=== PATIENT | female | born 1950 | race Caucasian/White ===

== ENCOUNTER 2017-08-11 19:53 | Inpatient (IN) | payer MEDICARE ==
[2017-08-11 20:37] LABS: #Eosinphils 0.1 thou/uL (0.0-0.7); #Lymphocytes 0.7 thou/uL (1.20-3.40); #Monocytes 0.6 thou/uL (0.11-0.59); #Neutrophils 7.7 thou/uL (1.40-6.50); %Basophils 0.1 % (0.0-1.0); %Eosinophils 0.6 % (0.0-10.0); %Lymphocytes 7.8 % (21.0-51.0); %Monocytes 6.2 % (0.0-10.0); Hematocrit 40.1 % (36.0-47.0); Mean Platelet Volume 7.4 fL (7.4-10.4); Red Blood Cell (RBC) Count 3.99 mill/uL (4.20-5.40)
[2017-08-11] MEDS ORDERED: Octreotide Acetate 1,250 MCG in Sodium Chloride 0.9% 250 ML 250 ML IVPB ONE (20:45)
[2017-08-11] MEDS ORDERED: Octreotide Acetate 100 MCG/ML VIAL SLOW IVP SCH (20:45)
[2017-08-11 20:49] LABS: PTT 35.6 SEC (22.9-36.1); Prothrombin Time 13.9 SEC (12.0-14.7)
[2017-08-11] MEDS ORDERED: Octreotide Acetate 50 MCG/ML AMP ONE (20:58)
[2017-08-11 21:01] LABS: ALT (SGPT) 69 U/L (8-55); AST (SGOT) 68 U/L (5-34); Alkaline Phosphatase 84 U/L (40-150); Anion Gap 14 mmol/L (10-20); BUN (Urea Nitrogen) 12 mg/dL (9.8-20.1); Bilirubin, Total 0.8 mg/dL (0.2-1.2); CK (CPK) 147 U/L (29-168); Calc. Creatinine Clearance 0 mL/min (70-130); Calcium 8.7 mg/dL (7.8-10.44); Carbon Dioxide 25 mmol/L (23-31); Chloride 108 mmol/L (98-107); Estimated GFR-MDRD 74; Globulin 2.5 g/dL (2.4-3.5); Protein, Total 6.5 g/dL (6.0-8.3)
[2017-08-11 21:07] LABS: Troponin I Less than 0.010 ng/mL (< 0.028)
--- NOTE | 2017-08-11 22:52 | PDOC.EVN ---
Event Note - Event Note Event Note: [id number] h&p dictated 1. GI bleed 2. abdominal pain 3. dm type 2 4. htn plan: see orders
[2017-08-11] MEDS ORDERED: Ondansetron HCl/PF 4 MG/2 ML Vial IVP PRN (23:43)
[2017-08-11] MEDS ORDERED: Famotidine/PF 20 mg/2ml Vial SLOW IVP SCH (23:45)
[2017-08-11 23:53] LABS: Troponin I Less than 0.010 ng/mL (< 0.028)
[2017-08-12 00:20] LABS: Hematocrit 41.6 % (36.0-47.0)
[2017-08-12] MEDS: Sodium Chloride 0.9% 1,000 ML IV SCH ×3 (01:02→18:28)
[2017-08-12] MEDS: cefTRIAXone\\ROCEPHIN 1 GM in Sterile Water 10 ML IVPB SCH (01:03)
[2017-08-12 02:49] LABS: PTT 37.8 SEC (22.9-36.1)
[2017-08-12 02:56] LABS: Troponin I Less than 0.010 ng/mL (< 0.028)
[2017-08-12 03:00] LABS: ALT (SGPT) 134 U/L (8-55); AST (SGOT) 178 U/L (5-34); Alkaline Phosphatase 122 U/L (40-150); Anion Gap 14 mmol/L (10-20); BUN (Urea Nitrogen) 10 mg/dL (9.8-20.1); Bilirubin, Direct 0.5 mg/dL (0.1-0.3); Calc. Creatinine Clearance 99 mL/min (70-130); Calcium 8.8 mg/dL (7.8-10.44); Carbon Dioxide 23 mmol/L (23-31); Chloride 106 mmol/L (98-107); Estimated GFR-MDRD 76; Globulin 2.6 g/dL (2.4-3.5); Protein, Total 6.6 g/dL (6.0-8.3)
[2017-08-12 06:01] VITALS: BMI 27.5
[2017-08-12 06:07] LABS: Hematocrit 42.7 % (36.0-47.0)
--- NOTE | 2017-08-12 07:12 | HP ---
DATE OF ADMISSION: 08/11/2017 CHIEF COMPLAINT: Nausea, vomiting. HISTORY OF PRESENT ILLNESS: The patient is a 67-year-old female with past medical history of hypertension, diabetes mellitus type 2, GERD, history of GI bleed, came to the ER, complaining of nausea and vomiting. The patient said she has numerous episodes of vomiting started this morning, complains of loose stools also, 4-5 black in color. Patient's initially vomiting are clear, later on started noticing blood in the vomit. Denies any fever, denies any chills, denies any chest pain, denies any trouble breathing. Complain some abdominal pain, epigastric mild. denies any cough, denies sputum production. Symptoms persisted that is why she came to the ER. Patient initially went to outside ER , the patient was transferred here for further evaluation. PAST MEDICAL HISTORY: As per HPI. PAST SURGICAL HISTORY: Hernia repair, hysterectomy. SOCIAL HISTORY: Denies smoking, denies alcohol, denies any drugs. FAMILY HISTORY: Denies any heart problems. MEDICATIONS: Reviewed. ALLERGIES: No known drug allergies. REVIEW OF SYSTEMS: Constitutional: Denies any fever, denies any chills. Eyes : No vision problems. Ears: Denies any hearing loss. Neck: Denies neck pain. Cardiovascular: Denies any chest pain. Respiratory: Denies any cough, denies production. Gastrointestinal: Positive for abdominal pain. Positive for nausea, vomiting. Genitourinary: Denies any dysuria. Integumentary: Denies any rash. All other review of systems are reviewed and are negative. PHYSICAL EXAMINATION: CONSTITUTIONAL/VITAL SIGNS: At the time of H and P performed, blood pressure is 122/87, pulse ox 94%, heart rate 91. GENERAL: The patient appears comfortable. HEENT: Pupils are equal, round, and reactive. Anterior nares patent. Nose normal. Ears normal. Teeth intact. Tongue is moist. NECK: Supple. No JVD. CARDIOVASCULAR SYSTEM: S1, S2 present. Regular rate and rhythm. No murmurs, no rubs, no gallops. RESPIRATORY SYSTEM: No wheezing, no rhonchi. Breath sounds bilaterally. GASTROINTESTINAL: Abdomen is soft, nontender, no guarding, no organomegaly, no masses felt. MUSCULOSKELETAL: No edema. INTEGUMENTARY: No obvious rashes were seen. PSYCHIATRIC: Mood is appropriate at this time. CRANIAL NERVE SYSTEM: Cranial nerves intact. Follows commands. Strength intact. Sensory intact. LABORATORY DATA: At the time of H and P performed, white count 9, hemoglobin 13.5, platelet count is 221. PT 13.9, INR 1.1. BMP showed sodium 144, potassium 3.4, chloride 108, CO2 of 25, BUN of 12, creatinine 0.78. AST 68, ALT 69. Troponin less than 0.010. ASSESSMENT AND PLAN: The patient is 67 years old female. 1. Gastrointestinal bleed. Need to monitor hemoglobin closely. Plan to start patient on Pepcid drip. Plan to monitor the patient closely. Plan to consult GI as outpatient. We will follow the patient closely. 2. History of diabetes mellitus type 2. Monitor blood sugars. We will do insulin sliding scale. 3. Nausea, vomiting, p.r.n. antiemetics. 4. History of hypertension. Monitor blood pressures, continue home blood pressure medications. The case was discussed in detail with the patient. Patient is FULL CODE. MTDD
[2017-08-12] MEDS ORDERED: Dextrose 5% in Water 1,000 ML IV PRN (07:48)
[2017-08-12] MEDS ORDERED: Acetaminophen 325 MG TAB PO PRN (07:48)
[2017-08-12] MEDS ORDERED: Ondansetron HCl/PF 4 MG/2 ML Vial IVP PRN ×2 (07:48→15:52)
[2017-08-12] MEDS ORDERED: Dextrose 50% Abboject 50 ML SYRINGE SLOW IVP PRN (07:48)
[2017-08-12] MEDS ORDERED: HumaLOG 300 UNITS/3 ML VIAL SC PRN (07:48)
[2017-08-12] MEDS ORDERED: Mag-Al 1200 mg/1200 mg/30 ML UDCUP PO PRN (07:48)
[2017-08-12] MEDS ORDERED: Acetaminophen 650 MG Suppository PR PRN (07:48)
[2017-08-12 07:59] LABS: Acetaminophen Less than 6.0 mcg/mL (10.0-30.0); Salicylate Less than 8.0 mg/dL (15.0-30.0)
[2017-08-12] MEDS: Famotidine/PF 20 mg/2ml Vial SLOW IVP SCH ×2 (08:34→21:20)
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
--- NOTE | 2017-08-12 12:07 | CT ---
CT OF THE ABDOMEN AND PELVIS WITH IV AND ENTERIC CONTRAST: Date: 08/12/17 PROVIDED CLINICAL HISTORY: Intractable nausea and vomiting FINDINGS: Visualized lung bases are free of significant opacity. The solid abdominal organs demonstrate an unre markable CT appearance. There is prominence of the common duct related to prior cholecystectomy. Ther e is no bowel dilatation, inflammatory fat stranding, free fluid, or free air apparent. The osseous structures demonstrate no concerning osteoblastic or osteolytic lesions. Occasional ather osclerotic vascular calcifications are seen. A small hiatal hernia is seen. IMPRESSION: No evidence for an acute process. POS: RAMIRO
[2017-08-12 12:28] LABS: Hematocrit 40.6 % (36.0-47.0)
[2017-08-12] MEDS ORDERED: Morphine PF 1 MG/ML SYR IVP PRN (12:46)
[2017-08-12] MEDS ORDERED: ISOVUE-370 76%-LOCM 1 ML ONE (14:41)
[2017-08-12 15:17] LABS: Bilirubin Negative (Negative); Blood, Urine Negative (Negative); Glucose, Urine (Dipstick) Negative (Negative); Ketone, Urine Negative (Negative); Nitrite Negative (Negative); Protein, Urine (Dipstick) Negative (Neg-Trace); Urobilinogen 0.2 mg/dL (0.2-1.0)
[2017-08-12 15:19] LABS: Bacteria/HPF None Seen HPF (None Seen); Hyaline Casts/LPF 0-3 HYALINE CAST LPF (0-3 Hyaline); RBC/HPF 0-3 HPF (0-3); Squamous Epithelial None Seen HPF (0-3); WBC/HPF None Seen HPF (0-3)
[2017-08-12 15:25] LABS: Amphetamine Not Detected (NotDetected); Methadone Not Detected (NotDetected); Methamphetamine Not Detected (NotDetected)
[2017-08-12] MEDS ORDERED: Promethazine HCl 25 MG/ML VIAL IM PRN (15:52)
[2017-08-12] MEDS ORDERED: Promethazine HCl 25 MG/ML VIAL SLOW IVP PRN (15:52)
[2017-08-12] MEDS ORDERED: Dexamethasone 20 MG/5 ML VIAL ONE (16:23)
[2017-08-12] MEDS ORDERED: Lidocaine 2% MPF 10 ML AMP (For Epidural Use) ONE (16:23)
[2017-08-12] MEDS ORDERED: Propofol 200 MG/20 ML VIAL ONE (16:23)
[2017-08-12] MEDS ORDERED: Succinylcholine Chloride 20 MG/ML 10 ml SYRINGE FS ONE (16:23)
[2017-08-12] MEDS ORDERED: Ondansetron HCl/PF 4 MG/2 ML Vial ONE (16:23)
--- NOTE | 2017-08-12 17:57 | CON ---
DATE OF CONSULTATION: 08/12/2017 CONSULTING PHYSICIAN: Sergey Weber M.D. REASON FOR CONSULTATION: Nausea and vomiting. HISTORY OF PRESENT ILLNESS: The patient is a 67-year-old female with past medical history of hypertension, diabetes mellitus, GERD, asthma, hyperlipidemia , and possible peptic ulcer disease presenting with acute onset of nausea, vomiting, and diarrhea. Approximately 1 week ago, she began to have symptoms consisting of mild abdominal cramping and mild decrease in her stool consistency that has progressively gotten worse over the last week. Within the last 48 hours, she started having increased nausea and vomiting characterized as repeated retching episodes of nonbloody emesis, but after approximately 12 hours, began to have vomitus containing what appeared to be coffee-ground emesis. At the same time of the appearance of her darker-colored emesis, she also had associated darker-colored stools characterized as dark, but not black semi-solid stools. Associated symptoms included increased stomach cramping, diffuse muscle myalgias, and subjective fevers or chills. With the worsening of these symptoms has prompted admission to [facility] where she was evaluated and admitted to the medicine floor over the last 12-24 hours with IV fluid and aggressive antiemetic control. She has continued to have increased nausea and vomiting with a few more episodes of darker-colored emesis today; however, she has had complete resolution of her darker-colored stools, although she does continue to have approximately 2-3 semisolid stools daily. No further episodes of subjective fevers or chills. PAST MEDICAL HISTORY: As per HPI. PAST SURGICAL HISTORY: Hernia repair, hysterectomy, cholecystectomy, EGD in 2016 with esophageal dilation. SOCIAL HISTORY: Denies smoking, alcohol, or drug use. FAMILY HISTORY: Denies any history of GI malignancy or abnormalities. OUTPATIENT MEDICATIONS: Reviewed. INPATIENT MEDICATIONS: Acetaminophen as needed, Maalox as needed, alprazolam 0.5 mg at night, amlodipine 10 mg at night, ceftriaxone 1 gram x1, famotidine 40 mg twice daily, Glucagon 1 mg IM as needed, insulin lispro, montelukast 10 mg at night, morphine 2 mg as needed, ondansetron 4 mg every 6 hours as needed, potassium chloride 20 mEq at night. REVIEW OF SYSTEMS: Full review of systems including constitutional, head, eyes , ears, nose, throat, GI, , cardiovascular, respiratory, musculoskeletal, and neurologic symptoms is negative except as noted in the HPI. PHYSICAL EXAMINATION: VITAL SIGNS: Temperature 99.5, pulse 70, blood pressure 136/71, respiratory rate 20, satting 93% on room air. GENERAL: A 67-year-old woman sitting up in bed in mild distress with intermittent episodes of observed vomiting. The patient is alert and oriented x4. SKIN: No jaundice, no rashes were inspected. EYES: No scleral icterus. Pupils equal, round, reactive to light. Extraocular movements are intact. ENT: Mucous membranes moist. No oral lesions. LYMPHATICS: No submandibular or supraclavicular lymphadenopathy, 2-3 cm soft tissue mass/lipoma palpated along the right temporomandibular joint. CARDIOVASCULAR: Regular rate and rhythm with no discernible murmurs, gallops, or rubs. RESPIRATORY: Clear to auscultation bilaterally. No wheezes or rales. ABDOMEN: Normoactive bowel sounds, soft, nontender, nondistended. No guarding or rebound tenderness elicited. EXTREMITIES: No cyanosis, clubbing, or edema. VESSELS: Radial pulses 2+ bilaterally. NEUROLOGIC: No focal sensory or motor deficits noted. LABORATORY DATA: White blood cell 9, hemoglobin 13.5, hematocrit 40.1, platelets 221. Sodium 140, potassium 3.2, chloride 106, carbon dioxide 23, BUN 10, creatinine 0.76, platelets 154, AST 178, ALT 134, alkaline phosphatase 122, total bilirubin 1.0, albumin 4.0, lipase 10. INR 1.1. IMAGING STUDIES: CT abdomen and pelvis is showing a prominence of the common bile duct related to prior cholecystectomy. There is no bowel dilation, inflammatory fat stranding, free fluid, or free air noted. ASSESSMENT AND PLAN: Nausea and vomiting The patient is currently having an acute worsening of nausea and vomiting with repeated retching episodes over the last 24-48 hours. With repeated forceful vomiting, the possibility of a Dulce-Vazquez tear is increased with slight tearing of the distal esophagus generating coffee-ground emesis as well as darker-colored stools and/or melena in cases of significant gastrointestinal bleed. However, her H/H has been stable since admission which is not indicative of a significant gastrointestinal bleed at this time. She is currently taking both Celebrex and ibuprofen 400 mg twice daily as an outpatient prior to admission, which could potentially cause gastritis and/or peptic ulcer disease that could contribute to increased nausea and vomiting. With the elevation in her LFTs, it is mildly concerning for a possible hepatitis origin, but hepatitis serologies have been negative and mild elevation in LFTs can be seen with repeated vomiting. With her concurrent diagnosis of diabetes, gastroparesis is also within the differential, although somewhat lesser due to her current constellation of symptoms. At this time, proceeding with esophagogastroduodenoscopy for evaluation of possible peptic ulcer disease and/or gastrointestinal bleeding is indicated. She does have an allergy to PPIs with seizures upon taking this particular medication, so administration of H2 blockers at this time is also indicated. Would discontinued octreotide given that there is no current evidence of cirrhosis either on imaging or on labs. We would consider obtaining a right upper quadrant ultrasound for the possibility of acalculous cholecystitis or choledocholithiasis, but again, this possibility is very low on the list. 2. Elevated transaminases The patient is presenting with a recent history of elevated transaminases including an AST of 178 and ALT of 134 without a concurrent elevation in alkaline phosphatase or total bilirubin. This pattern is primarily considered a hepatocellular distribution which can be indicative of medication or toxin ingestion. With her taking both ibuprofen and Celebrex at home, it could potentially generate this type of pattern while on top of a preexisting diagnosis of hepatic steatosis. Also, within the differential could include that repeated episodes of nausea and vomiting could potentially generate elevated transaminases that is usually seen in our patients with hyperemesis gravidarum but could also occur in this case. At this time, she does not show any evidence of current hepatic failure or decrease in hepatic function as indicated by normal albumin and total bilirubin. Differential could also include other viral hepatitis including Cytomegalovirus or varicella zoster virus but are usually seen in patients with hypotension, which is not evident in her case. At this time, I would consider a right upper quadrant ultrasound for further delineation of the hepatic anatomy. I would avoid all NSAIDs and continue to trend her LFTs as her nausea and vomiting is under better control to document decrease in these transaminases. MICAHD
[2017-08-12 18:00] LABS: Hematocrit 43.1 % (36.0-47.0)
[2017-08-12] MEDS ORDERED: Lorazepam 1 MG TAB PO PRN (18:56)
--- NOTE | 2017-08-12 18:57 | OP ---
DATE OF PROCEDURE: 08/12/17 PROCEDURE: Esophagogastroduodenoscopy. POSTOPERATIVE DIAGNOSES: 1. [place] grade C esophagitis. 2. Minimal erythema of the gastric body and antrum. 3. No evidence of Dulce-Vazquez tear, erosions, ulcerations or mass lesions. ANESTHESIA: General anesthesia. PROCEDURE IN DETAIL: After the patient was informed of the risks, benefits and possible complications of upper endoscopy including perforation, bleeding, reactions to medication and aspiration, informed consent was obtained. The patient was brought to the endoscopy suite where a timeout was performed prior to the procedure. After a timeout was performed, general anesthesia was instituted per Anesthesia support. Once adequate sedation was achieved, the endoscope was advanced through the oral cavity into the esophagus into the stomach and intestine. There was good visualization of the entire upper GI tract. FINDINGS: Esophagus: Normal mucosa was seen in the upper esophagus. Scattered linear erosions were seen in the mid and distal esophagus extending greater than 5 mm in length and sometimes extending between the esophageal folds, but not circumferentially involving the entire esophagus. There were no associated ulcerations or bleeding noted in the distal esophagus. No Dulce-Vazquez tear or active bleeding was noted in the distal esophagus, both the GE junction and diaphragmatic pinch were noted at approximately 40 cm past the incisors. Stomach: Minimal erythema was seen in both the gastric body and antrum without associated erosions or ulcerations. Adequate visualization of the entire stomach was also performed with no other abnormalities. No hiatal hernia was seen on retroflexion. Small intestine: Normal mucosa was seen in the duodenal bulb and the second portion of the small intestine. There was no evidence of erosions, ulcerations or mass lesions. No evidence of active bleeding was seen in this portion of the examination. RECOMMENDATIONS: 1. We would increase antiemetic management to schedule the ondansetron to 4 mg 3 times daily. 2. Add lorazepam 1 mg twice daily as needed for continued nausea and vomiting. 3. Avoid all NSAIDs. 4. Continue famotidine 40 mg twice daily. 5. Can place patient on clear liquid diet and advance diet as tolerated. MTDD
[2017-08-12] MEDS ORDERED: Potassium Chloride 20 MEQ TAB PO SCH (21:00)
[2017-08-12] MEDS ORDERED: ALPRAZolam 0.5 MG TAB PO SCH (21:00)
[2017-08-12] MEDS ORDERED: DULOXETINE HCL 30 MG PO SCH (21:00)
[2017-08-12] MEDS ORDERED: DULoxetine 30 MG CAP PO SCH (21:00)
[2017-08-12] MEDS ORDERED: Amlodipine 10 MG TAB PO SCH (21:00)
[2017-08-12] MEDS ORDERED: Montelukast Sodium 10 mg Tablet PO SCH (21:00)
[2017-08-12] MEDS: Ondansetron HCl/PF 4 MG/2 ML Vial IVP SCH (21:20)
[2017-08-13] MEDS: cefTRIAXone\\ROCEPHIN 1 GM in Sterile Water 10 ML IVPB SCH (00:18)
[2017-08-13 05:55] LABS: ALT (SGPT) 88 U/L (8-55); AST (SGOT) 62 U/L (5-34); Alkaline Phosphatase 109 U/L (40-150); Anion Gap 12 mmol/L (10-20); BUN (Urea Nitrogen) 8 mg/dL (9.8-20.1); Bilirubin, Total 0.4 mg/dL (0.2-1.2); Calc. Creatinine Clearance 96 mL/min (70-130); Calcium 8.4 mg/dL (7.8-10.44); Carbon Dioxide 23 mmol/L (23-31); Chloride 107 mmol/L (98-107); Estimated GFR-MDRD 78; Globulin 2.4 g/dL (2.4-3.5); Protein, Total 6.1 g/dL (6.0-8.3)
[2017-08-13] MEDS ORDERED: Famotidine 20 MG TAB PO SCH (09:00)
[2017-08-13] MEDS: Ondansetron HCl/PF 4 MG/2 ML Vial IVP SCH (09:26)
--- NOTE | 2017-08-13 10:45 | PDOC.PN ---
- Subjective Encounter Start Date: 08/13/17 Encounter Start Time: 08:15 Subjective: feels better -: 2 other family members have had nausea/vomiting now - Objective Resuscitation Status: Resuscitation Status FULL:Full Resuscitation MAR Reviewed: Yes Vital Signs & Weight: Vital Signs (12 hours) Temp Pulse Resp BP Pulse Ox 08/13/17 08:00 98.4 F 65 18 137/75 95 08/13/17 04:00 98.3 F 64 18 114/59 L 94 L Weight Weight 180 lb I&O: 08/12/17 08/13/17 08/14/17 06:59 06:59 06:59 Intake Total 1400 Output Total 900 Balance 500 Result Diagrams: 08/12/17 17:50 08/13/17 04:19 Additional Labs: Accuchecks 08/13/17 08/12/17 08/12/17 05:57 17:43 12:17 POC Glucose 121 H 123 H 130 H Phys Exam - Physical Examination HEENT: PERRLA, moist MMs Neck: no JVD, supple Respiratory: no wheezing, no rales Cardiovascular: RRR, no significant murmur Gastrointestinal: soft, non-tender, no distention, positive bowel sounds Musculoskeletal: no edema, pulses present Neurological: non-focal, moves all 4 limbs Psychiatric: A&O x 3 Dx/Plan (1) Stomach flu Code(s): A08.4 - VIRAL INTESTINAL INFECTION, UNSPECIFIED Status: Acute (2) Hematemesis with nausea Code(s): K92.0 - HEMATEMESIS Status: Resolved (3) Elevated LFTs Code(s): R79.89 - OTHER SPECIFIED ABNORMAL FINDINGS OF BLOOD CHEMISTRY Status : Acute (4) HTN (hypertension) Code(s): I10 - ESSENTIAL (PRIMARY) HYPERTENSION Status: Chronic Qualifiers: Hypertension type: essential hypertension Qualified Code(s): I10 - Essential (primary) hypertension (5) DM type 2 (diabetes mellitus, type 2) Status: Chronic Qualifiers: Diabetes mellitus complication status: with unspecified complications Diabetes mellitus penitentiary insulin use: without termite control service representative use Qualified Code( s): E11.8 - Type 2 diabetes mellitus with unspecified complications (6) Asthma Code(s): J45.909 - UNSPECIFIED ASTHMA, UNCOMPLICATED Status: Chronic Qualifiers: Asthma severity: mild Asthma persistence: unspecified (7) Dyslipidemia Code(s): E78.5 - HYPERLIPIDEMIA, UNSPECIFIED Status: Chronic - Plan EGD results noted -: likely has stomach flu with 2 other family members starting to have similar -: -symptoms. -: May dc home, alireza conner, counselled to hydrate well on dc -: to f/u with her pcp in 1 week. * .
[2017-08-13 11:36] VITALS: BP 131/76; TEMP 98.9
--- NOTE | 2017-08-13 18:44 | DIS ---
DATE OF ADMISSION: 08/11/2017 DATE OF DISCHARGE: 08/13/2017 DISCHARGE DISPOSITION: To home. PRIMARY DISCHARGE DIAGNOSES: Stomach flu, initial hematemesis resolved, elevated liver function tests slowly trending down secondary to intractable nausea and vomiting. SECONDARY DISCHARGE DIAGNOSES: Diabetes mellitus type 2, hypertension, asthma, dyslipidemia. PROCEDURES DONE DURING HOSPITALIZATION: Upper endoscopy done by Dr. Cm Lawson showed grade C esophagitis, minimal erythema of the gastric body and antrum, no evidence of Dulce-Vazquez tear, erosions, ulcerations, or mass lesions. Blood cultures x2, no growth. Urine culture, no growth. Discharge hematocrit was 43, which has remained stable. Discharge BUN and creatinine is 8 and 0.7. Discharge AST, ALT is 62 and 88. AST, ALT was 178 and 134 on the . Total bilirubin 1.0, albumin 4.0. Troponin x3 negative. Urine drug screen is negative. Acute hepatitis panel was negative. INPATIENT CONSULTS: Dr. Cm Lawson. DISCHARGE PLAN: The patient to follow up with primary care physician in 1 week. DISCHARGE MEDICATIONS: Alprazolam 0.5 mg p.o. q.h.s., Norvasc 10 mg p.o. at bedtime, atorvastatin 80 mg p.o. at bedtime, Dexilant 60 mg p.o. at bedtime, duloxetine 30 mg p.o. at bedtime, metformin 1000 mg p.o. twice daily, Singulair 10 mg p.o. at bedtime, Actos 30 mg p.o. at bedtime, potassium chloride extended release 20 mEq p.o. at bedtime, Zantac 150 mg p.o. at bedtime. ALLERGIES: ESOMEPRAZOLE, PENICILLIN, SUCRALFATE. BRIEF COURSE DURING HOSPITALIZATION: The patient initially got admitted on the with complaints of severe nausea, vomiting, and epigastric pain. She had also complained of hematemesis for almost 3-4 days. She has had some black stools as well. In view of all the above-mentioned complaints, the patient was admitted to telemetry. She has had consultation with Dr. Cm Lawson for Gastroenterology. She has had upper endoscopy done. The findings are described above. 36 hours into hospitalization, the patient revealed that her and one other family member has had similar complaints with intractable nausea and vomiting. Likely all her symptoms are due to stomach flu. She has been able to tolerate oral full liquids this morning. She will be shortly discharged home. Her LFTs which got elevated on the 2nd day is trending down towards normal. Likely her LFTs were elevated due to intractable nausea and vomiting. She has remained hemodynamically stable. Prior to discharge, she is ambulating. She needs followup with her primary care physician in 1 week. Please see a [id number] documentation on [facility] for the day of discharge. VÍCTOR
--- NOTE | 2017-09-15 14:13 | EKG ---
Test Reason : Blood Pressure : / mmHG Vent. Rate : 086 BPM Atrial Rate : 086 BPM P-R Int : 188 ms QRS Dur : 092 ms QT Int : 364 ms P-R-T Axes : 054 031 061 degrees QTc Int : 435 ms Normal sinus rhythm No ST/T wave changes Normal ECG Confirmed by RENU DENISE DO ([id number]), metropolitan editor RAS SHELTON ([id number]) on 09/15/2017 2:13:33 PM Referred By: Confirmed By:RENU DENISE DO
== END 2017-08-13 11:55 | disposition home or self-care (01) | DRG 392 ==
LOC: ERS 19:53 → 2NO 21:22
PROVIDERS: ADMIT Internal Medicine; ATTEND Internal Medicine
PROC: 0DJ08ZZ Inspection of Upper Intestinal Tract, Via Natural or Artificial Opening Endoscopic (ICD-10-PCS; principal; 2017-08-12)
DX: A08.4 Viral intestinal infection, unspecified (principal); K92.0 Hematemesis; I10 Essential (primary) hypertension; E11.9 Type 2 diabetes mellitus without complications; K20.9 Esophagitis, unspecified; E78.5 Hyperlipidemia, unspecified; J45.909 Unspecified asthma, uncomplicated
CPT/HCPCS: 36415; 36416; 74177; 80053; 80074; 80076; 80306; 80307; 81001; 82550; 82553; 83690; 83880; 84484; 85014; 85610; 85730; 86850; 86900; 86901; 87040; 87086; 93005; 96365; 96366; 96376; A4216; J0696; J1100; J2001; J2354; J2405; J2704; J7050; S0028